=== PATIENT | female | born 1990 | race Caucasian/White ===

== ENCOUNTER 2021-11-20 16:50 | Emergency (ER) | payer OTHER ==
[2021-11-20 17:29] VITALS: BP 125/82; PULSE 64; RESP 18; TEMP 98.2
[2021-11-20] MEDS ORDERED: methylPREDNISolone SOD SUCCI 125 MG/2 ML VIAL IV STA (18:15)
[2021-11-20] MEDS ORDERED: FAMOTIDINE 20 MG/2 ML VIAL IV STA (18:15)
[2021-11-20] MEDS ORDERED: diphenhydrAMINE 50 MG/ML 1 ML VIAL IVP STA (18:15)
--- NOTE | 2021-11-20 18:29 | ED ---
Allergic Reaction HPI - General Chief complaint: Allergic Reaction Stated complaint: allergic reaction Time Seen by Provider: 11/20/21 17:49 Source: patient, RN notes reviewed Mode of arrival: ambulatory - History of Present Illness Initial Comments: 31-year-old female who states that 2 days ago she used some hair dye and almost immediately started developing scalp irritation and redness and also some itching and blistering and redness to her scalp neck years. She has some chest tightness which resolved the. No overt fevers chills or sweats she states she has been taking baths and this in the make it worse she's also use alcohol on the lesions. No cough no phlegm production no fevers chills or sweats no prior history of any discomfort no chest she was a secondary to the lesions and the discomfort from that. MD Complaint: allergic reaction, hives, facial swelling, other - Related Data Previous Rx's Medication Instructions Recorded Acetaminophen-Codeine 300-30mg 1 tab PO Q4H PRN #30 tablet 12/31/14 [Tylenol #3] Ibuprofen [Motrin] 600 mg PO Q6HR PRN #30 tab 12/31/14 Famotidine [Pepcid] 20 mg PO BID #14 tablet 11/20/21 predniSONE [Deltasone] 20 mg PO BID #10 tab 11/20/21 Allergies Allergy/AdvReac Type Severity Reaction Status Date / Time No Known Allergies Allergy Verified 11/20/21 17:29 Review of Systems ROS Statement: Those systems with pertinent positive or pertinent negative responses have been documented in the HPI. ROS Other: All systems not noted in ROS Statement are negative. Past Medical History Past Medical History: No Reported History History of Any Multi-Drug Resistant Organisms: None Reported Additional Past Surgical History / Comment(s): Cysts removed on leg. Past Anesthesia/Blood Transfusion Reactions: No Reported Reaction Past Psychological History: No Psychological Hx Reported Past Alcohol Use History: None Reported Past Drug Use History: None Reported General Exam - General Exam Comments Initial Comments: This is a well-developed well-nourished awake alert oriented 3 female General appearance: alert, in no apparent distress Head exam: Present: atraumatic, normocephalic, other (Erythema with multiple lesions is open wound seen to the scalp extending down into the neck and also to the ears with left facial erythema and some lesions seen the periorbital region eyelids and conjunctiva appear to be clear at this time) Eye exam: Present: normal appearance, PERRL, EOMI. Absent: scleral icterus, conjunctival injection, periorbital swelling ENT exam: Present: normal exam, mucous membranes moist Neck exam: Present: full ROM, other (Lesions similar to that of the scalp seen in the posterior). Absent: tenderness, meningismus, lymphadenopathy Respiratory exam: Present: normal lung sounds bilaterally. Absent: respiratory distress, wheezes, rales, rhonchi, stridor, chest wall tenderness Cardiovascular Exam: Present: regular rate, normal rhythm, normal heart sounds. Absent: systolic murmur, diastolic murmur, rubs, gallop, clicks GI/Abdominal exam: Present: soft, normal bowel sounds. Absent: distended, tenderness, guarding, rebound, rigid Extremities exam: Present: normal inspection, full ROM, normal capillary refill. Absent: tenderness, pedal edema, joint swelling, calf tenderness Back exam: Present: normal inspection Neurological exam: Present: alert, oriented X3, CN II-XII intact Psychiatric exam: Present: normal affect, normal mood Skin exam: Present: warm, dry, intact, normal color. Absent: rash Course Vital Signs 11/20/21 11/20/21 17:25 17:58 Temperature 98.2 F Pulse Rate 64 Respiratory 18 18 Rate Blood Pressure 125/82 O2 Sat by Pulse 100 Oximetry Medical Decision Making - Medical Decision Making I did discuss findings with the patient and her and the presentation is consistent with a contact dermatitis secondary to the hair data was used. We a long discussion regarding symptoms and ounces care to be placed on appropriate medication we did discuss cleansing the wounds with only soap and water and using triple antibiotic ointment on it. - EKG Data -: EKG Interpreted by Me EKG shows normal: sinus rhythm, axis, intervals, QRS complexes, ST-T waves Rate: normal EKG Comments: Normal sinus rhythm of 87. Interval 142 QRS 72 QT since QTC 360/433 nonspecific septal configuration some artifact present Disposition Clinical Impression: Contact dermatitis Disposition: HOME SELF-CARE Condition: Good Instructions (If sedation given, give patient instructions): Contact Dermatitis (ED) Additional Instructions: Tuvf-coe-[id number] Benadryl 25 mg every 6 hours when necessary itch Prescriptions: predniSONE [Deltasone] 20 mg PO BID #10 tab Famotidine [Pepcid] 20 mg PO BID #14 tablet Is patient prescribed a controlled substance at d/c from ED?: No Referrals: None,Stated [Primary Care Provider] - 1-2 days
== END 2021-11-20 18:38 | disposition home or self-care (01) ==
LOC: EC 16:50
DX: L25.9 Unspecified contact dermatitis, unspecified cause (principal)
CPT/HCPCS: 99283; 96374; 96375 ×2; J1200; J2930; 93005

== ENCOUNTER 2022-01-12 11:23 | Emergency (ER) | payer OTHER ==
[2022-01-12] MEDS ORDERED: IBUPROFEN 600 MG TAB PO STA (11:52)
--- NOTE | 2022-01-12 12:02 | ED ---
ENT HPI - General Chief complaint: ENT Stated complaint: Vomiting/inside of ear bleeding Time Seen by Provider: 01/12/22 11:40 Source: patient, RN notes reviewed Mode of arrival: ambulatory Limitations: no limitations - History of Present Illness Initial comments: This is a pleasant 31-year-old female comes the ER complaining of left ear pain. States it's been bothering her for a few days. Worse today. Sharp pain which assessment by movement of the auricle. No alleviating factors. Patient has no history of immunosuppression. No difficulty swallowing. No nasal symptoms. No eye symptoms. No headache. No stiff neck. No skin rashes or lesions. Patient states she was getting some drainage from the ear. No headache, no fever or chills, no changes in vision or hearing, no sore throat or difficulty with speech, no neck pain, no chest pain or shortness of breath, no abdominal pain, no nausea or vomiting, no changes in urination or bowel movements, no numbness or tingling, no extremity pain, no skin rashes or lesions. MD complaint: ear pain - Related Data Previous Rx's Medication Instructions Recorded Acetaminophen-Codeine 300-30mg 1 tab PO Q4H PRN #30 tablet 12/31/14 [Tylenol #3] Ibuprofen [Motrin] 600 mg PO Q6HR PRN #30 tab 12/31/14 Famotidine [Pepcid] 20 mg PO BID #14 tablet 11/20/21 predniSONE [Deltasone] 20 mg PO BID #10 tab 11/20/21 Acetaminophen [Tylenol] 500 mg PO Q4-6H PRN #24 tab 01/12/22 Ciprofloxacin HCl/Dexameth 5 drops LEFT EAR BID #7.5 ml 01/12/22 [Ciproflox-Dexameth Otic Susp] Ibuprofen [Motrin] 600 mg PO Q8HR PRN #30 tab 01/12/22 Allergies Allergy/AdvReac Type Severity Reaction Status Date / Time black dye Allergy Anaphylaxis Uncoded 01/12/22 11:27 Review of Systems ROS Statement: Those systems with pertinent positive or pertinent negative responses have been documented in the HPI. ROS Other: All systems not noted in ROS Statement are negative. Past Medical History Past Medical History: No Reported History History of Any Multi-Drug Resistant Organisms: None Reported Additional Past Surgical History / Comment(s): Cysts removed on leg. Past Anesthesia/Blood Transfusion Reactions: No Reported Reaction Past Psychological History: No Psychological Hx Reported Smoking Status: Current every day smoker Past Alcohol Use History: None Reported Past Drug Use History: None Reported General Exam - General Exam Comments Initial Comments: Patient appears to be in distress secondary to left ear pain. However does not appear to be ill or toxic. Limitations: no limitations General appearance: alert, in distress Head exam: Present: atraumatic, normocephalic, normal inspection Eye exam: Present: normal appearance, PERRL, EOMI. Absent: scleral icterus, conjunctival injection, periorbital swelling ENT exam: Present: normal exam, mucous membranes moist, TM's normal bilaterally. Absent: mucous membranes dry Expanded Ear exam: Absent: auricular hematoma, auricular trauma TM/Canal exam: Canal Discharge: Left TM (Pain with movement of the external ear), Canal Tenderness: Left TM Mouth exam: Present: normal external inspection. Absent: drooling, trismus, muffled voice, tongue normal, tongue elevation, laceration Teeth exam: Absent: normal inspection Throat exam: negative: normal inspection, tonsillar erythema Neck exam: Present: normal inspection, full ROM. Absent: tenderness, meningismus, lymphadenopathy Respiratory exam: Present: normal lung sounds bilaterally. Absent: respiratory distress, wheezes, rales, rhonchi, stridor Cardiovascular Exam: Present: regular rate, normal rhythm, normal heart sounds. Absent: systolic murmur, diastolic murmur, rubs, gallop, clicks GI/Abdominal exam: Present: soft, normal bowel sounds. Absent: distended, tenderness, guarding, rebound, rigid Extremities exam: Present: normal inspection, full ROM, normal capillary refill. Absent: tenderness, pedal edema, joint swelling, calf tenderness Back exam: Present: normal inspection Neurological exam: Present: alert, oriented X3, CN II-XII intact Psychiatric exam: Present: normal affect, normal mood Skin exam: Present: warm, dry, intact, normal color. Absent: rash Course Vital Signs 01/12/22 11:25 Temperature 97.3 F L Pulse Rate 103 H Respiratory 18 Rate Blood Pressure 131/86 O2 Sat by Pulse 97 Oximetry Medical Decision Making - Medical Decision Making Patient symptomology consistent with external otitis. We'll treat with ciprofloxacin/dexamethasone drops, patient counseled on treatment, Follow-Up, Agrees with Treatment Plan, Questions Answered. Patient Did Not Appear to Be Systemically Ill Otherwise. Patient was told to return to the ER for any signs or symptoms worsen. Told to return immediately if any other problems arise. All questions answered. Treatment plan discussed. Patient in agreement Every effort has been made to ensure accuracy of this dictation. However, due to the limitations of electronic medical records and dictation devices, errors in charting still occur. Disposition Clinical Impression: External otitis of left ear Disposition: HOME SELF-CARE Condition: Stable Instructions (If sedation given, give patient instructions): Swimmer's Ear (ED) Additional Instructions: Use eardrops as directed, 5 drops to the affected ear twice daily for at least 7 days. Follow-up with the ear nose and throat doctor or your family physician as discussed. Follow-up with your regular physician as directed. Return to the ER immediately if any symptoms worsen, new symptoms arise, or any other problems develop. Prescriptions: Ciprofloxacin HCl/Dexameth [Ciproflox-Dexameth Otic Susp] 5 drops LEFT EAR BID #7.5 ml Ibuprofen [Motrin] 600 mg PO Q8HR PRN #30 tab PRN Reason: Pain Acetaminophen [Tylenol] 500 mg PO Q4-6H PRN #24 tab PRN Reason: Pain Is patient prescribed a controlled substance at d/c from ED?: No Referrals: Rico Welsh MD [STAFF PHYSICIAN] - 01/17/22 Eran Coffey MD [REFERRING] - 01/17/22 Time of Disposition: 11:56
[2022-01-12 12:15] VITALS: BP 128/78; PULSE 92; RESP 16; TEMP 98
== END 2022-01-12 12:13 | disposition home or self-care (01) ==
LOC: EC 11:23
DX: H60.92 Unspecified otitis externa, left ear (principal); F17.200 Nicotine dependence, unspecified, uncomplicated
CPT/HCPCS: 99282

== ENCOUNTER 2023-02-25 15:46 | Emergency (ER) | payer OTHER ==
[2023-02-25 15:50] VITALS: BP 137/84; PULSE 115; RESP 18; TEMP 99.7
--- NOTE | 2023-02-25 16:58 | ED ---
General Adult HPI - General Chief complaint: Abdominal Pain Stated complaint: Covid+ Time Seen by Provider: 02/25/23 16:58 Source: patient, RN notes reviewed Mode of arrival: ambulatory Limitations: no limitations - History of Present Illness Initial comments: 32-year-old female with no significant past medical history presents the emergency department with a chief complaint of generalized body aches. Patient reports she was at work earlier today and she took a covert test which was positive. she denies any known recent sick contacts. She denies receiving Covid or influenza vaccine. She denies any dizziness, lightheadedness, chest pain, shortness of breath, nausea, vomiting. - Related Data Previous Rx's Medication Instructions Recorded Acetaminophen-Codeine 300-30mg 1 tab PO Q4H PRN #30 tablet 12/31/14 [Tylenol #3] Ibuprofen [Motrin] 600 mg PO Q6HR PRN #30 tab 12/31/14 Famotidine [Pepcid] 20 mg PO BID #14 tablet 11/20/21 predniSONE [Deltasone] 20 mg PO BID #10 tab 11/20/21 Acetaminophen [Tylenol] 500 mg PO Q4-6H PRN #24 tab 01/12/22 Ciprofloxacin HCl/Dexameth 5 drops LEFT EAR BID #7.5 ml 01/12/22 [Ciproflox-Dexameth Otic Susp] Ibuprofen [Motrin] 600 mg PO Q8HR PRN #30 tab 01/12/22 Allergies Allergy/AdvReac Type Severity Reaction Status Date / Time black dye Allergy Anaphylaxis Uncoded 01/12/22 11:27 Review of Systems ROS Statement: Those systems with pertinent positive or pertinent negative responses have been documented in the HPI. ROS Other: All systems not noted in ROS Statement are negative. Past Medical History Past Medical History: No Reported History History of Any Multi-Drug Resistant Organisms: None Reported Additional Past Surgical History / Comment(s): Cysts removed on leg. Past Anesthesia/Blood Transfusion Reactions: No Reported Reaction Past Psychological History: No Psychological Hx Reported Smoking Status: Current every day smoker Past Alcohol Use History: None Reported Past Drug Use History: None Reported General Exam Limitations: no limitations General appearance: alert, in no apparent distress Head exam: Present: atraumatic, normocephalic, normal inspection Eye exam: Present: normal appearance, PERRL, EOMI. Absent: scleral icterus, conjunctival injection, periorbital swelling ENT exam: Present: normal exam, mucous membranes moist Neck exam: Present: normal inspection. Absent: tenderness, meningismus, lymphadenopathy Respiratory exam: Present: normal lung sounds bilaterally. Absent: respiratory distress, wheezes, rales, rhonchi, stridor Cardiovascular Exam: Present: regular rate, normal rhythm, normal heart sounds. Absent: systolic murmur, diastolic murmur, rubs, gallop, clicks GI/Abdominal exam: Present: soft, normal bowel sounds. Absent: distended, tenderness, guarding, rebound, rigid Extremities exam: Present: normal inspection, full ROM, normal capillary refill. Absent: tenderness, pedal edema, joint swelling, calf tenderness Back exam: Present: normal inspection Neurological exam: Present: alert, oriented X3, CN II-XII intact Psychiatric exam: Present: normal affect, normal mood Skin exam: Present: warm, dry, intact, normal color. Absent: rash Course Vital Signs 02/25/23 15:47 Temperature 99.7 F H Pulse Rate 115 H Respiratory 18 Rate Blood Pressure 137/84 O2 Sat by Pulse 100 Oximetry Medical Decision Making - Medical Decision Making Was pt. sent in by a medical professional or institution (, PA, [employer] REPA[employer]ER [employer], urgent care, hospital, or long-term...) When possible be specific @ -[No] Did you speak to anyone other than the patient for history (EMS, parent, family, police, friend...)? What history was obtained from this source @ -[No] Did you review nursing and triage notes (agree or disagree)? Why? @ -[I reviewed and agree with nursing and triage notes] Were old charts reviewed (outside hosp., previous admission, EMS record, old EKG, old radiological studies, urgent care reports/EKG's, long-term records)? Report findings @ -[No old charts were reviewed] Differential Diagnosis (chest pain, altered mental status, abdominal pain women, abdominal pain men, vaginal bleeding, weakness, fever, dyspnea, syncope, headache, dizziness, GI bleed, back pain, seizure, CVA, palpatations, mental health, musculoskeletal)? @ -[not applicable] EKG interpreted by me (3pts min.). @ -[As above] X-rays interpreted by me (1pt min.). @ -x-ray negative for any pleural CT interpreted by me (1pt min.). @ -[None done] U/S interpreted by me (1pt. min.). @ -[None done] What testing was considered but not performed or refused? (CT, X-rays, U/S, labs)? Why? @ -[None] What meds were considered but not given or refused? Why? @ -[None] Did you discuss the management of the patient with other professionals (professionals i.e. , PA, [employer] RE[employer], lab, RT, psych nurse, socially responsible investment adviser, automation control integrator, teacher, telecommunications officer, casework manager)? Give summary @ -[No] Was smoking cessation discussed for >3mins.? @ -[No] Was critical care preformed (if so, how long)? @ -[No] Were there social determinants of health that impacted care today? How? (Homelessness, low income, unemployed, alcoholism, drug addiction, transportation, low edu. Level, literacy, decrease access to med. care, half-way, rehab)? @ -[No] Was there de-escalation of care discussed even if they declined (Discuss DNR or withdrawal of care, Hospice)? DNR status @ -[No] What co-morbidities impacted this encounter? (DM, HTN, Smoking, COPD, CAD, Cancer, CVA, ARF, Chemo, Hep., AIDS, mental health diagnosis, sleep apnea, morbid obesity)? @ -[None] Was patient admitted / discharged? Hospital course, mention meds given and route, prescriptions, significant lab abnormalities, going to OR and other pertinent info. @ -discharged. This is a 32-year-old female who presents with Covid positive. Patient had a thorough history and physical exam performed while in the ED. Physical exam essentially unremarkable heart rate regular rate and rhythm, lungs clear to auscultation bilaterally no marin. Abdomen is soft and nontender. Patient was given Tylenol Motrin with mild symptomatic relief. I discussed the results in detail with the patient verbalized understanding all questions were addressed. Return precautions were discussed at length. She was discharged in stable condition. Case discussed with PCP who agrees with plan of care. Undiagnosed new problem with uncertain prognosis? @ -[No] Drug Therapy requiring intensive monitoring for toxicity (Heparin, Nitro, Insulin, Cardizem)? @ -[No] Were any procedures done? @ -[No] Diagnosis/symptom? @ -COVID 19 Acute, or Chronic, or Acute on Chronic? @ -acute Uncomplicated (without systemic symptoms) or Complicated (systemic symptoms)? @ -uncomplicated Side effects of treatment? @ -[No] Exacerbation, Progression, or Severe Exacerbation? @ -[No] Poses a threat to life or bodily function? How? (Chest pain, [place], [place], pneumonia, PE, COPD, DKA, ARF, appy, cholecystitis, CVA, Diverticulitis, Homicidal, Suicidal, threat to staff... and all critical care pts) @ -low likelihood Disposition Clinical Impression: COVID-19 Disposition: HOME SELF-CARE Condition: Stable Instructions (If sedation given, give patient instructions): Coronavirus Disease 2019 (COVID-19) Additional Instructions: Return to the nearest emergency department if symptoms worsen or persist Is patient prescribed a controlled substance at d/c from ED?: No Referrals: None,Stated [Primary Care Provider] - 1-2 days Time of Disposition: 20:25
--- NOTE | 2023-02-25 17:24 | XR ---
EXAMINATION TYPE: XR chest 2V DATE OF EXAM: 02/25/2023 COMPARISON: None INDICATION: Chest pain TECHNIQUE: Single frontal view of the chest is obtained. FINDINGS: The heart size is normal. The pulmonary vasculature is normal. There is some mild infiltrate at the right lung base. Correlate for atelectasis. Developing pneumonia could be considered. Follow-up can be performed as clinically indicated. IMPRESSION: 1. Right lower lobe infiltrate. Correlate for atelectasis or pneumonia.
[2023-02-25] MEDS ORDERED: ACETAMINOPHEN TAB 325 MG TAB PO STA (20:09)
[2023-02-25] MEDS ORDERED: IBUPROFEN 600 MG TAB PO STA (20:09)
== END 2023-02-25 20:31 | disposition home or self-care (01) ==
LOC: EC 15:46
DX: U07.1 COVID-19 (principal); F17.200 Nicotine dependence, unspecified, uncomplicated; Z91.041 Radiographic dye allergy status
CPT/HCPCS: 71046; 99284

== ENCOUNTER 2024-06-17 09:41 | Emergency (ER) | payer OTHER ==
--- NOTE | 2024-06-17 10:03 | ED ---
General Adult HPI - General Stated complaint: congestion/cough Time Seen by Provider: 06/17/24 09:55 Source: patient, RN notes reviewed Mode of arrival: ambulatory Limitations: no limitations - History of Present Illness Initial comments: 34-year-old female presents emergency department with chief complaint of cough and congestion states that she been sick for several days states that her son was sick recently. Patient states he has a sore throat mild congestion and chest heaviness with a cough which is productive. No abdominal pain no history of asthma. Patient has any headache or dizziness currently. No neck pain - Related Data Previous Rx's Medication Instructions Recorded Acetaminophen-Codeine 300-30mg 1 tab PO Q4H PRN #30 tablet 12/31/14 [Tylenol #3] Ibuprofen [Motrin] 600 mg PO Q6HR PRN #30 tab 12/31/14 Famotidine [Pepcid] 20 mg PO BID #14 tablet 11/20/21 predniSONE [Deltasone] 20 mg PO BID #10 tab 11/20/21 Acetaminophen [Tylenol] 500 mg PO Q4-6H PRN #24 tab 01/12/22 Ciprofloxacin HCl/Dexameth 5 drops LEFT EAR BID #7.5 ml 01/12/22 [Ciproflox-Dexameth Otic Susp] Ibuprofen [Motrin] 600 mg PO Q8HR PRN #30 tab 01/12/22 Azithromycin [Zithromax Z Pack] 0 tab PO DIRECTED #6 tab 06/17/24 Allergies Allergy/AdvReac Type Severity Reaction Status Date / Time black dye Allergy Anaphylaxis Uncoded 06/17/24 10:05 Review of Systems ROS Statement: Those systems with pertinent positive or pertinent negative responses have been documented in the HPI. ROS Other: All systems not noted in ROS Statement are negative. Past Medical History Past Medical History: No Reported History History of Any Multi-Drug Resistant Organisms: None Reported Additional Past Surgical History / Comment(s): Cysts removed on leg. Past Anesthesia/Blood Transfusion Reactions: No Reported Reaction Past Psychological History: No Psychological Hx Reported Smoking Status: Current every day smoker Past Alcohol Use History: None Reported Past Drug Use History: None Reported General Exam General appearance: alert, in no apparent distress Head exam: Present: atraumatic, normocephalic, normal inspection Eye exam: Present: normal appearance, PERRL, EOMI. Absent: scleral icterus, conjunctival injection, periorbital swelling ENT exam: Present: normal exam, normal oropharynx, mucous membranes moist Neck exam: Present: normal inspection, full ROM. Absent: tenderness, meningismus, lymphadenopathy Respiratory exam: Present: normal lung sounds bilaterally. Absent: respiratory distress, wheezes, rales, rhonchi, stridor Cardiovascular Exam: Present: regular rate, normal rhythm, normal heart sounds. Absent: systolic murmur, diastolic murmur, rubs, gallop, clicks Course Vital Signs 06/17/24 06/17/24 06/17/24 10:03 10:42 11:44 Temperature 97.2 F L 98.1 F Pulse Rate 82 62 Respiratory 18 18 18 Rate Blood Pressure 113/77 111/71 O2 Sat by Pulse 98 99 Oximetry Medical Decision Making - Medical Decision Making Was pt. sent in by a medical professional or institution ( PA, ENDOSCOPY SUPPORT SPECIALIST, urgent care, hospital, or jail...) When possible be specific @ -[No] Did you speak to anyone other than the patient for history (EMS, parent, family, police, friend...)? What history was obtained from this source @ -[No] Did you review nursing and triage notes (agree or disagree)? Why? @ -[I reviewed and agree with nursing and triage notes] Were old charts reviewed (outside hosp., previous admission, EMS record, old EKG, old radiological studies, urgent care reports/EKG's, jail records)? Report findings @ -[No old charts were reviewed] Differential Diagnosis (chest pain, altered mental status, abdominal pain women, abdominal pain men, vaginal bleeding, weakness, fever, dyspnea, syncope, headache, dizziness, GI bleed, back pain, seizure, CVA, palpatations, mental health, musculoskeletal)? @ -COVID 19, RSV, influenza, pneumonia, acute bronchitis, URI, this list is not all inclusive EKG interpreted by me (3pts min.). @ -none X-rays interpreted by me (1pt min.). @ -Chest x-ray shows evidence of pneumonia CT interpreted by me (1pt min.). @ -[None done] U/S interpreted by me (1pt. min.). @ -[None done] What testing was considered but not performed or refused? (CT, X-rays, U/S, labs)? Why? @ -[None] What meds were considered but not given or refused? Why? @ -[None] Did you discuss the management of the patient with other professionals (professionals i.e. , PA, ENDOSCOPY SUPPORT SPECIALIST, lab, RT, psych nurse, director social, firer watertender, teacher, staff command and control officer, wrapper caser)? Give summary @ -[No] Was smoking cessation discussed for >3mins.? @ -[No] Was critical care preformed (if so, how long)? @ -[No] Were there social determinants of health that impacted care today? How? (Homelessness, low income, unemployed, alcoholism, drug addiction, transportation, low edu. Level, literacy, decrease access to med. care, alf, rehab)? @ -[No] Was there de-escalation of care discussed even if they declined (Discuss DNR or withdrawal of care, Hospice)? DNR status @ -[No] What co-morbidities impacted this encounter? (DM, HTN, Smoking, COPD, CAD, Cancer, CVA, ARF, Chemo, Hep., AIDS, mental health diagnosis, sleep apnea, morbid obesity)? @ -[None] Was patient admitted / discharged? Hospital course, mention meds given and route, prescriptions, significant lab abnormalities, going to OR and other pertinent info. @ -Discharge patient had a negative viral panel, chest x-ray shows evidence of pneumonia. Patient started on azithromycin return transfer discussed. Close follow-up was discussed Undiagnosed new problem with uncertain prognosis? @ -[No] Drug Therapy requiring intensive monitoring for toxicity (Heparin, Nitro, Insulin, Cardizem)? @ -[No] Were any procedures done? @ -[No] Diagnosis/symptom? @ -Pneumonia Acute, or Chronic, or Acute on Chronic? @ -Acute Uncomplicated (without systemic symptoms) or Complicated (systemic symptoms)? @ -Complicated Side effects of treatment? @ -[No] Exacerbation, Progression, or Severe Exacerbation? @ -[No] Poses a threat to life or bodily function? How? (Chest pain, [place], [place], pneumonia, PE, COPD, DKA, ARF, appy, cholecystitis, CVA, Diverticulitis, Homicidal, Suicidal, threat to staff... and all critical care pts) @ -yes pneumonia resp failure - Lab Data Lab Results 06/17/24 06/17/24 Range/Units 10:07 10:07 Influenza Type A (PCR) Not Detected (Not Detectd) Influenza Type B (PCR) Not Detected (Not Detectd) RSV (PCR) Not Detected (Not Detectd) SARS-CoV-2 (PCR) Not Detected (Not Detectd) Group A Strep (PCR) NOT DETECTED (Not Detectd) Disposition Clinical Impression: Pneumonia Disposition: HOME SELF-CARE Condition: Stable Instructions (If sedation given, give patient instructions): Bacterial Pneumonia (ED) Additional Instructions: Please return to the Emergency Department if symptoms worsen or any other concerns. Prescriptions: Azithromycin [Zithromax Z Pack] 0 tab PO DIRECTED #6 tab Is patient prescribed a controlled substance at d/c from ED?: No Referrals: None,Stated [Primary Care Provider] - 1-2 days Time of Disposition: 11:03
[2024-06-17 10:09] VITALS: RESP 18
--- NOTE | 2024-06-17 10:19 | XR ---
EXAMINATION TYPE: XR chest 2V DATE OF EXAM: 06/17/2024 10:14 AM CLINICAL INDICATION:Female, 34 years old with history of cough; [facility] COMPARISON: None TECHNIQUE: XR chest 2V Frontal view of the chest. FINDINGS: Lungs/Pleura: Airspace opacities along the right heart border. There is no evidence of pleural effusi on, focal consolidation, or pneumothorax. Pulmonary vascularity: Unremarkable. Heart/mediastinum: Cardiomediastinal silhouette is unremarkable. Musculoskeletal: No acute osseous pathology. Other findings: None Lines/Tubes: IMPRESSION: Increased right middle lobe airspace opacities concerning for pneumonia.
[2024-06-17 11:46] VITALS: BP 111/71; PULSE 62; TEMP 98.1
== END 2024-06-17 11:44 | disposition home or self-care (01) ==
LOC: EC 09:41
DX: J18.9 Pneumonia, unspecified organism (principal); F17.200 Nicotine dependence, unspecified, uncomplicated; Z91.018 Allergy to other foods
CPT/HCPCS: 71046; 87636; 87651; 99283